=== PATIENT | female | born 1960 | race Caucasian/White ===

== ENCOUNTER 2023-04-14 13:00 | Observation (INO) | payer BC ==
[~2023-04-14] VITALS: Ht 170.2 cm; Wt 108.8 kg
[2023-04-14 09:20] LABS: BASOPHILS # (AUTO) 0.04 K/uL (0.00-0.20); BASOPHILS % (AUTO) 0.7 % (0.0-5.0); EOSINOPHILS # (AUTO) 0.06 K/uL (0.00-0.70); EOSINOPHILS % (AUTO) 1.1 % (0.0-8.0); HEMATOCRIT 38.3 % (36-48); IMMATURE GRANULOCYTE ABSOLUTE 0.01 K/uL (0-1); LYMPHOCYTES # (AUTO) 0.9 K/uL (1.0-4.8); LYMPHOCYTES % (AUTO) 16.9 % (21.0-51.0); MEAN CORPUSCULAR HEMOGLOBIN 28.2 pg (27.0-33.0); MEAN CORPUSCULAR HGB CONC 31.6 g/dL (32.0-36.0); MEAN CORPUSCULAR VOLUME 89.3 fL (79-99); MONOCYTES # (AUTO) 0.4 K/uL (0.1-1.0); MONOCYTES % (AUTO) 7.3 % (3.0-13.0); NEUTROPHILS % (AUTO) 73.8 % (40.0-77.0); PLATELET COUNT (AUTO) 258 K/uL (130-400); RED BLOOD CELL COUNT(AUTO) 4.29 MIL/uL (4.00-5.50); RED CELL DISTRIBUTION WIDTH 14.6 % (11.0-15.5); WHITE BLOOD COUNT (AUTO) 5.4 K/uL (4.8-10.8)
[2023-04-14 09:24] VITALS: BP 147/72; PULSE 66; RESP 13
[2023-04-14 09:34] LABS: POTASSIUM 4.6 mmol/L (3.5-5.1)
[~2023-04-14 13:00] MED LIST: AEC81 PO; CHOL500051 PO; GABA-529 PO; HYDR25TA PO; LOSA100T59 PO; METO-408 PO; NAPR-1023 PO; OMEP40CA21 PO; ROSU10TA28 PO; VITAMIN B12 PO
[2023-04-15] VITALS (28 sets, daily range): BP systolic 125–163; BP diastolic 46–70; PULSE 54–102; RESP 10–18; O2SAT 98–99
[2023-04-15] MEDS ORDERED: LIDOCAINE 2%-EPI PF 30 ML+BUPIVACAINE/PF 0.25% 30ML /60ML SYR IJ SCH ×2 (06:00)
[2023-04-15] MEDS ORDERED: CEFAZOLIN SODIUM 2 GM VIAL ONE (06:41)
[2023-04-15] MEDS ORDERED: LACTATED RINGERS 1000ML 1,000 ML IV ONE (06:41)
[2023-04-15] MEDS ORDERED: MORPHINE PF 100MG/10ML AMP IV ONE (06:53)
[2023-04-15] MEDS ORDERED: THROMBIN-JMI 20000 UNIT KIT TP ONE (06:54)
[2023-04-15] MEDS ORDERED: CEFAZOLIN SODIUM 1 GM VIAL ONE ×2 (06:54→12:01)
[2023-04-15] MEDS ORDERED: MIDAZOLAM HCL 1 MG/ML 2ML VIAL ONE (07:12)
[2023-04-15] MEDS ORDERED: ROCURONIUM 10MG/1ML SYR 10 MG/ML ML ONE ×2 (07:13→07:59)
[2023-04-15] MEDS ORDERED: PROPOFOL 10 MG/ML 20ML VIAL IV ONE (07:13)
[2023-04-15] MEDS ORDERED: FENTANYL CITRATE PF 50 MCG/1 ML 2ML VIAL ONE ×2 (07:13→11:52)
[2023-04-15] MEDS ORDERED: ONDANSETRON 4MG INJ ONE ×2 (07:14→12:50)
[2023-04-15] MEDS ORDERED: CEFAZOLIN SODIUM 2 GM VIAL IVPB ONE (07:32)
[2023-04-15] MEDS ORDERED: ARTIFICIAL TEARS 3.5 GM OINTMENT ONE (07:48)
[2023-04-15] MEDS ORDERED: CEFAZOLIN SODIUM 1 GM VIAL IRRIG ONE ×2 (07:54)
[2023-04-15] MEDS ORDERED: MORPHINE 10MG VIAL IM ONE (07:54)
[2023-04-15] MEDS ORDERED: EPHEDRINE SULFATE 50 MG/ML AMPULE ONE (07:59)
[2023-04-15] MEDS ORDERED: PHENYLEPHRINE HCL 10 MG/ML 1ML VIAL IV ONE (08:30)
[2023-04-15] MEDS ORDERED: NEOSTIGMINE 5MG/5ML SYR IV ONE (11:22)
[2023-04-15] MEDS ORDERED: GLYCOPYRROLATE 1 MG/5 ML SYRINGE ONE (11:22)
[2023-04-15] MEDS: DEXAMETHASONE SOD PHOSPHATE 4 MG/ML 1ML VIAL IVP SCH ×2 (12:00→18:52)
[2023-04-15] MEDS: LACTATED RINGERS 1000ML 1,000 ML IV SCH (12:00)
[2023-04-15] MEDS ORDERED: 0.9%NACL 10ML VIAL IVP PRN (12:00)
[2023-04-15] MEDS ORDERED: NAPROXEN 500 MG TABLET PO PRN (12:00)
[2023-04-15] MEDS: CEFAZOLIN SODIUM 2 GM VIAL IVPB SCH ×2 (12:00→19:43)
[2023-04-15] MEDS ORDERED: PROMETHAZINE HCL 25 MG/ML 1ML AMPULE IM PRN (12:00)
[2023-04-15] MEDS ORDERED: MORPHINE 2 MG SYG IVP PRN (12:00)
[2023-04-15] MEDS: GABAPENTIN 100 MG CAPSULE PO SCH (12:00)
[2023-04-15] MEDS ORDERED: KETOROLAC 15MG/ML VIAL (15MG/ML) ONE (12:50)
[2023-04-15] MEDS ORDERED: MEPERIDINE-PF 25 MG/ML SYG ONE (12:50)
[2023-04-15] MEDS ORDERED: DEXAMETHASONE SOD PHOSPHATE 4 MG/ML 1ML VIAL ONE (13:16)
[2023-04-15] MEDS ORDERED: GABAPENTIN 100 MG CAPSULE PO SCH (21:00)
[2023-04-15] MEDS ORDERED: LOSARTAN 100 MG TABLET PO SCH (21:00)
[2023-04-15] MEDS ORDERED: Rosuvastatin Calcium 10 MG PO SCH (21:00)
[2023-04-15] MEDS: HYDROCODONE/ACETAMINOPHEN 5/325 MG TAB PO PRN (22:44)
[2023-04-16] MEDS: DEXAMETHASONE SOD PHOSPHATE 4 MG/ML 1ML VIAL IVP SCH ×2 (00:05→05:28)
[2023-04-16] MEDS: LACTATED RINGERS 1000ML 1,000 ML IV SCH (01:07)
[2023-04-16 03:00] VITALS: PULSE 78; RESP 18
[2023-04-16 07:40] VITALS: BP 125/58; PULSE 89; RESP 20
[2023-04-16] MEDS ORDERED: Cholecalciferol (Vitamin D3) 125 MCG PO SCH (08:00)
[2023-04-16] MEDS ORDERED: METOPROLOL SUCCINATE 25 MG TAB.SR.24H PO SCH (08:00)
[2023-04-16 08:10] VITALS: O2SAT 96
[2023-04-16] MEDS ORDERED: HYDROCHLOROTHIAZIDE 25 MG TABLET PO SCH (09:00)
[2023-04-16] MEDS ORDERED: CYANOCOBALAMIN (VITAMIN B-12) 1,000 MCG TABLET PO SCH (09:00)
[2023-04-16] MEDS ORDERED: NON-FORMULARY MEDICATION 1 EACH (Omeprazole 40 MG) PO SCH (09:00)
[2023-04-16] MEDS ORDERED: PANTOPRAZOLE 40 MG TAB DR PO SCH (09:00)
[2023-04-16] MEDS ORDERED: ASPIRIN 81 MG EC TAB PO SCH (09:00)
[2023-04-16] MEDS: GABAPENTIN 100 MG CAPSULE PO SCH (09:26)
[2023-04-16] MEDS: HYDROCODONE/ACETAMINOPHEN 5/325 MG TAB PO PRN (09:27)
[2023-04-16 11:47] VITALS: BP 135/63; PULSE 79; RESP 20
== END 2023-04-16 12:10 | disposition home or self-care (01) ==
LOC: DAHIP 04-15 06:03 → 4DH 04-15 10:35
PROVIDERS: ADMIT Neurological Surgery; ATTEND Neurological Surgery
DX: M48.061 Spinal stenosis, lumbar region without neurogenic claudication (principal); R20.2 Paresthesia of skin; C53.9 Malignant neoplasm of cervix uteri, unspecified; I10 Essential (primary) hypertension; M79.605 Pain in left leg; I25.10 Atherosclerotic heart disease of native coronary artery without angina pectoris
CPT/HCPCS: 80048; 85025; 36415; 71045; 63047; 63048 ×3; 96374; 96375 ×2; 72020; 96376; A6260; G0378 ×22; G0379; J7030; J7120 ×2; A4344; J3010 ×2; J0690 ×7; J3490 ×3; J2710; J0665; J2250; J2704; J2274; J2405 ×2; J1100 ×4; J2175; J1885; J2371; J2270 ×2; A4649; A6219